=== PATIENT | female | born 1980 | race Caucasian/White ===

== ENCOUNTER 2017-08-08 06:56 | Day surgery (SDC) | payer OTHER ==
--- NOTE | 2017-07-29 16:06 | HP ---
AMENDED REPORT NOW INCLUDES COSIGNER DESIGNATION - ESIGNED BEFORE ADJUSTMENT PREOPERATIVE HISTORY AND PHYSICAL: DATE OF ADMISSION: 08/08/17 PROVIDER: Naseem Tinoco MD * (DICTATED BY APRIL BURR) CHIEF COMPLAINT: Left ankle instability. HISTORY OF PRESENT ILLNESS: Kendra is a 36-year-old female followed by Dr. Tinoco for ongoing left ankle instability. She underwent an MRI, which was reviewed at our last visit and revealed a torn anterior talofibular ligament with a small os subfibulare. She has continued with her regular strengthening activities; however, she reports that she has had multiple episodes of twisting the ankle since finishing physical therapy. She cannot walk comfortably without a sports brace for support. She is interested in surgical intervention at this point for correction of the problem as she walks significant distances for her job. PAST MEDICAL HISTORY: Hypertension, asthma, type 2 diabetes and uterine cancer. PAST SURGICAL HISTORY: D and C x12, hysterectomy in 2014. She reports no complications with anesthesia with those procedures. CURRENT MEDICATIONS: 1. Cozaar 100 mg 1 p.o. daily. 2. Victoza 1.2 mg daily. 3. Estradiol 1 mg p.o. daily. 4. Wellbutrin SR 100 mg p.o. daily. ALLERGIES: LATEX. FAMILY HISTORY: Positive for diabetes and high blood pressure in her mother. Heart disease in her father. SOCIAL HISTORY: She lives with her . 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 She denies tobacco use. She drinks 1 to 2 alcoholic beverages per week. She does exercise regularly. REVIEW OF SYSTEMS: Constitutional: Negative for fevers, chills, night sweats or unexplained weight loss. Negative for recent hospitalizations. HEENT: Negative for headaches, lightheadedness or balance problems, blurred or double vision, sore throat, runny nose, frequent nosebleeds, or hearing changes. Cardiovascular: Negative for chest pain or heart palpitations. Respiratory: Negative for shortness of breath or chronic cough. Gastrointestinal: Negative for nausea, vomiting, diarrhea, constipation or GERD. Genitourinary: Negative for urinary tract infections or kidney stones. Musculoskeletal: Negative for chronic back pain or recent fractures. Skin: Negative for rashes, lesions, lumps or sores. Neurologic: Negative for peripheral neuropathy or weakness. Endocrine: Positive for weight gain and fatigue. Allergic: Positive for seasonal allergies. Hematology: Negative for easy bleeding, bruising, or anemia. Psychiatry: Negative for depression or anxiety. PHYSICAL EXAMINATION GENERAL: She is a well-developed, well-nourished, morbidly obese female, in no acute distress at rest. She is alert and oriented x3, with appropriate mood and affect. VITAL SIGNS: The patient is 5 feet 5 inches, 375 pounds. Blood pressure 128/78 , pulse of 62, respirations 16. HEENT: Normocephalic and atraumatic. Hearing and vision are grossly intact. NECK: Her trachea is midline. RESPIRATORY: Lungs are clear to auscultation bilaterally. No wheezes, rales or rhonchi. CARDIOVASCULAR: Regular rate and rhythm. No murmurs, rubs or gallops. Normal S1 and S2. ABDOMEN: Soft, obese, and nontender. Normal bowel sounds. EXTREMITIES: Exam of the left lower extremity, skin is intact without abrasions or open wounds. There is mild edema over the lateral aspect of the ankle. There is no ecchymosis or gross deformity. She is tender to palpation over the distal anterior fibula as well as the anterior talofibular ligament. There is no tenderness on the peroneal tendons, base of the fifth metatarsal, Lisfranc joint or medial ankle. She has good hindfoot range of motion with 5/5 strength. Her sensation to light touch is intact. She has a 2+ dorsalis pedis pulse. She has a 2+ anterior drawer. IMPRESSION: Left ankle instability with os subfibulare. PLAN: The patient is to undergo left ankle ligament repair with possible allograft, excision of os subfibulare by Dr. Tinoco on 08/08/17. The risks, benefits, and postoperative course were discussed with the patient at length and she would like to proceed. All of her questions were answered to her full satisfaction. A prescription for oxycodone was sent to her pharmacy for postoperative pain. She was given a handicap parking pass and a prescription for a knee scooter as well to assist with nonweightbearing. All of her questions were answered to her full satisfaction. She is understanding to call should she develop any problems or concerns. APRIL BURR [id number]/[facility] #: [id number] RACHAEL
[~2017-08-08 06:56] MED LIST: Buffered Lidocaine 0.9% SYRIN* 5 ML/SYR SYRINGE INTRADERM ONE
[2017-08-08] MEDS ORDERED: ceFAZolin 2 GM PREMIX (*) 50 ML IVPB ONE (07:26)
[2017-08-08] MEDS ORDERED: ceFAZolin 1 GM ADVAN(*) 1 GM ADDV.VIAL IVPB ONE (07:26)
[2017-08-08] MEDS ORDERED: Bupivacaine 0.5% SDV PF* 30 ML VIAL ONE (07:32)
[2017-08-08] MEDS ORDERED: Propofol* 10 MG/ML 20 ML BTL IV PUSH ONE (08:49)
[2017-08-08] MEDS ORDERED: Succinylcholine* 20 MG/ML 10 ML VIAL ONE (08:49)
[2017-08-08] MEDS ORDERED: Midazolam* 1 MG/ML 5 ML VIAL (5 MG) ONE (08:50)
[2017-08-08] MEDS ORDERED: fentaNYL* 50 MCG/ML 2 ML VIAL (100 MCG VIAL) ONE ×4 (08:50→10:24)
[2017-08-08] MEDS ORDERED: Atracurium* 10 MG/ML 10 ML VIAL ONE (09:12)
[2017-08-08] MEDS ORDERED: Ondansetron INJ* 2 MG/ML VIAL ONE (09:46)
[2017-08-08] MEDS ORDERED: Dexamethasone IV* 4 MG/ML 1 ML (4 MG) ONE (09:47)
[2017-08-08] MEDS ORDERED: HYDROcodone/ACETAMIN 5-325 MG* 1 TAB PO PRN (09:50)
[2017-08-08] MEDS ORDERED: DiMENhydriNATE IV* 50 MG/ML VIAL IV PUSH PRN (09:50)
[2017-08-08] MEDS ORDERED: Ondansetron INJ* 2 MG/ML VIAL IV PRN (09:50)
[2017-08-08] MEDS: fentaNYL* 50 MCG/ML 2 ML VIAL (100 MCG VIAL) IV PRN ×5 (10:07→10:29)
[2017-08-08] MEDS ORDERED: oxyCODONE/Acetamin 5/325 MG* TAB ONE ×2 (10:24→11:18)
[2017-08-08] MEDS: oxyCODONE/Acetamin 5/325 MG* TAB PO PRN ×2 (10:29→11:19)
[2017-08-08] MEDS ORDERED: Neostigmine Methylsulfate* 2 MG/2 ML SYRINGE ONE (10:36)
[2017-08-08] MEDS ORDERED: Glycopyrrolate IV* 0.2 MG/ML 1 ML VIAL ONE (10:36)
[2017-08-08] MEDS ORDERED: HYDROcodone/ACETAMIN 5-325 MG* 1 TAB ONE (12:02)
[2017-08-08 12:10] VITALS: BP 121/92
--- NOTE | 2017-08-09 01:18 | OP ---
DATE OF OPERATION: 08/08/17 - [facility] DATE OF : 82 ATTENDING SURGEON: Naseem Tinoco MD. PIPE ORGAN TUNER AND REPAIRER: Nohemy Fan PA-C ANESTHESIOLOGIST: Valdemar Gonzalez MD ANESTHESIA: General PRE-OP DIAGNOSIS: Left ankle instability. POST-OP DIAGNOSIS: Left ankle instability. OPERATIVE PROCEDURE: Left ankle ligament repair. DESCRIPTION OF PROCEDURE: The patient was taken to the operating room, a longitudinal incision made over the distal fibula. We incised anteriorly directly along the distal and anterior fibula. Cartilage intra-articularly appeared to be intact. We raised the periosteum of the fibula and reflected at this posteriorly. A 0.062 C-wire was used to make four through-bone tunnels, and a Saad-Jacinto suture using #1 Vicryl was used to repair the capsule. We then brought the periosteum down over the capsule with a [id number] repair of 2-0 Vicryl. Subcutaneous tissue closed with 2-0 Vicryl and harley for the skin and a compression dressing plaster splint applied. [id number]/[facility] #: [id number] MTDD
== END 2017-08-08 12:12 | disposition home or self-care (01) ==
LOC: OR 06:56
PROVIDERS: ATTEND Orthopaedic Surgery
DX: M25.372 Other instability, left ankle (principal); I10 Essential (primary) hypertension; J45.909 Unspecified asthma, uncomplicated; E11.9 Type 2 diabetes mellitus without complications; Z79.84 Long term (current) use of oral hypoglycemic drugs; Z85.42 Personal history of malignant neoplasm of other parts of uterus; E66.01 Morbid (severe) obesity due to excess calories; Z68.44 Body mass index [BMI] 60.0-69.9, adult
CPT/HCPCS: A9270-GY; C1776; J0330; J0690; J1100; J2250; J2405; J2704; J3010